=== PATIENT | male | born 1960 | race Caucasian/White ===

== ENCOUNTER 2016-11-18 09:52 | Emergency (ER) | payer OTHER ==
[2016-11-18 09:56] VITALS: BP 132/74
[2016-11-18 11:00] LABS: Hematocrit 50 % (42-52); Hemoglobin 16.8 g/dl (14.0-18.0); Mean Corpuscular HGB Conc 33 g/dl (31-36); Mean Corpuscular Hemoglobin 31 pg (27-31); Mean Corpuscular Volume 93 fL (80-94); Mean Platelet Volume 9 um3 (7.4-10.4); Red Cell Distribution Width 15 % (10.5-15); White Blood Count 8.7 10^3/ul (3.5-10.8)
[2016-11-18 11:08] LABS: Add Diff/Slide Review? Slide Review Added; Comments Flag Yes
[2016-11-18 11:11] LABS: Albumin 3.5 g/dL (3.2-5.2); BUN/Creatinine Ratio 24.5 (8-20); Calcium 9.9 mg/dL (8.6-10.3); EGFR Non-African American 78.6 (>60); Globulin 2.8 g/dL (2-4); Potassium 3.9 mmol/L (3.5-5.0); Total Protein 6.3 g/dL (6.4-8.9)
--- NOTE | 2016-11-18 11:16 | RAD ---
HISTORY: Left calf pain COMPARISONS: None relevant TECHNIQUE: Multiple transverse and longitudinal ultrasound images were obtained of the left lower extremity from the level of the common femoral vein inferiorly through to the infrapopliteal veins using grayscale, color Doppler, and spectral Doppler imaging with and without compression and with augmentation. Comparison images were obtained of the contralateral common femoral vein. FINDINGS: VEINS: The venous system of the left lower extremity is compressible throughout its course, with normal flow on color Doppler imaging and normal response to augmentation on spectral Doppler imaging. SOFT TISSUES: Unremarkable. OTHER FINDINGS: None. IMPRESSION: NO LEFT LOWER EXTREMITY DEEP VEIN THROMBOSIS
--- NOTE | 2016-11-18 11:44 | ED ---
Skin Complaint - HPI Summary HPI Summary: 56M presents with rash on legs starting today. His primary recommended he come to ED for u/s due to inc edema in his legs. He has been having the edema in bilateral legs with some pain for some time but the rash is new. He denies any fevers. He denies any recent travel, surgeries, or immobilization. He denies any family history of blood clots. He has never had this rash before. He denies any numbness or tingling. He has not taken anything for pain. - History of Current Complaint Chief Complaint: EDExtremityLower Time Seen by Provider: 11/18/16 10:07 Stated Complaint: LT LEG COMPLAINT Pain Intensity: 6 - Allergy/Home Medications Allergies/Adverse Reactions: Allergies Allergy/AdvReac Type Severity Reaction Status Date / Time No Known Allergies Allergy Verified 10/28/12 18:14 PMH/Surg Hx/FS Hx/Imm Hx Endocrine/Hematology History: Denies: Hx Diabetes Cardiovascular History: Reports: Hx Hypertension Infectious Disease History: No Infectious Disease History: Denies: Traveled Outside the [place] in Last 30 Days - Family History Known Family History: Negative: Blood Disorder - Social History Alcohol Use: None Substance Use Type: Reports: None Smoking Status (MU): Never Smoked Tobacco Review of Systems Negative: Fever Negative: Chest Pain Negative: Shortness Of Breath Positive: Myalgia - right calf pain, Edema - bilateral legs Positive: Rash All Other Systems Reviewed And Are Negative: Yes Physical Exam Triage Information Reviewed: Yes Vital Signs On Initial Exam: Initial Vitals Temp Pulse Resp BP Pulse Ox 97.3 F 55 16 132/74 95 11/18/16 09:53 11/18/16 09:53 11/18/16 09:53 11/18/16 09:53 11/18/16 09:53 Vital Signs Reviewed: Yes Appearance: Positive: Well-Appearing Skin: Positive: Other - red macular lesions to top of sweeney of left foot, area above lateral malleolus that is red, tender to touch and warm Head/Face: Positive: Normal Head/Face Inspection Eyes: Positive: Normal, Conjunctiva Clear Respiratory/Lung Sounds: Positive: Clear to Auscultation, Breath Sounds Present Cardiovascular: Positive: Normal, RRR Musculoskeletal: Positive: Strength/ROM Intact - left knee and ankle, Other - good pulses, sensation grossly intact,. Negative: Rc Sign Left Diagnostics - Vital Signs Vital Signs Temp Pulse Resp BP Pulse Ox 11/18/16 09:56 97.3 F 54 16 132/74 96 11/18/16 09:53 97.3 F 55 16 132/74 95 - Laboratory Lab Results: Lab Results 11/18/16 11/18/16 11/18/16 Range/Units 10:45 10:45 10:45 WBC 8.7 (3.5-10.8) 10^3/ul RBC 5.40 (4.0-5.4) 10^6/ul Hgb 16.8 (14.0-18.0) g/dl Hct 50 (42-52) % MCV 93 (80-94) fL MCH 31 (27-31) pg MCHC 33 (31-36) g/dl RDW 15 (10.5-15) % Plt Count 162 (150-450) 10^3/ul MPV 9 (7.4-10.4) um3 Neut % (Auto) 63.6 (38-83) % Lymph % (Auto) 25.0 (25-47) % [place] % (Auto) 7.7 (1-9) % Eos % (Auto) 3.1 (0-6) % Baso % (Auto) 0.6 (0-2) % Absolute Neuts (auto) 5.6 (1.5-7.7) 10^3/ul Absolute Lymphs (auto) 2.2 (1.0-4.8) 10^3/ul Absolute Monos (auto) 0.7 (0-0.8) 10^3/ul Absolute Eos (auto) 0.3 (0-0.6) 10^3/ul Absolute Basos (auto) 0.1 (0-0.2) 10^3/ul Absolute Nucleated RBC 0 10^3/ul Nucleated RBC % 0 INR (Anticoag Therapy) 1.00 (0.89-1.11) APTT 35.4 (26.0-36.3) seconds Sodium 136 (133-145) mmol/L Potassium 3.9 (3.5-5.0) mmol/L Chloride 108 (101-111) mmol/L Carbon Dioxide 23 (22-32) mmol/L Anion Gap 5 (2-11) mmol/L BUN 24 (6-24) mg/dL Creatinine 0.98 (0.67-1.17) mg/dL Est GFR ( Amer) 101.0 (>60) Est GFR (Non-Af Amer) 78.6 (>60) BUN/Creatinine Ratio 24.5 H (8-20) Glucose 139 H (70-100) mg/dL Calcium 9.9 (8.6-10.3) mg/dL Total Bilirubin 1.00 (0.2-1.0) mg/dL AST 36 (13-39) U/L ALT 20 (7-52) U/L Alkaline Phosphatase 95 (34-104) U/L Total Protein 6.3 L (6.4-8.9) g/dL Albumin 3.5 (3.2-5.2) g/dL Globulin 2.8 (2-4) g/dL Albumin/Globulin Ratio 1.3 (1-3) Result Diagrams: 11/18/16 10:45 11/18/16 10:45 Lab Statement: Any lab studies that have been ordered have been reviewed, and results considered in the medical decision making process. - Ultrasound No standard instances Ultrasound Interpretation: No Acute Changes Ultrasound Interpretation Completed By: Radiologist - IMPRESSION: NO LEFT LOWER EXTREMITY DEEP VEIN THROMBOSIS Course/Dx - Course Course Of Treatment: 56M presents with rash on legs starting today. His primary recommended he come to ED for u/s due to inc edema in his legs. He has been having the edema in bilateral legs with some pain for some time but the rash is new. He denies any fevers. he has no risk factors for DVT. labs wbc 8.7, u/s normal. rash near left lateral malleolus could be cellulitic but almost looks like venous statis. will treat as cellulitis. also will try corticosteriod for lesions on sweeney as could be due to venous insufficiency? told to use compression socks. told to follow up with primary to see if any improvement. warned if develops fever to return. patient understands and agrees with plan - Differential Diagnoses - Skin Complaint Differential Diagnoses: Cellulitis, Contact Dermatitis, Other - DVT, venous statis - Diagnoses Provider Diagnoses: Rash, Edema of lower extremity Discharge - Discharge Plan Condition: Good Disposition: HOME Prescriptions: Cephalexin CAP* [Keflex CAP*] 500 mg PO TID #30 cap Triamcinolone 0.1% OINT(NF) [Kenalog 0.1% OINT(NF)] 1 applic TOPICAL DAILY #1 tube Patient Education Materials: Leg Edema (ED) Referrals: Milton Husain MD [Primary Care Provider] - Additional Instructions: Elevate leg and wear compression socks Will treat for possible cellulitis infection: Keflex three times a day for 10 days Apply corticosteriod ointment to area once a day Follow up with primary within 5 days Return to ED if develop any new or worsening symptoms
[2016-11-18 12:24] LABS: C Reactive Protein 10.77 mg/L (< 5.00)
== END 2016-11-18 11:58 | disposition home or self-care (01) ==
LOC: ED 09:52
DX: R60.9 Edema, unspecified (principal); R21 Rash and other nonspecific skin eruption; M79.661 Pain in right lower leg
CPT/HCPCS: 36415; 80053; 85025; 85610; 85730; 86140; 99282

== ENCOUNTER 2017-12-01 08:11 | Inpatient (IN) | payer OTHER ==
[2017-12-01] MEDS ORDERED: NS 0.9% 1000 ML* 1,000 ML IV ONE ×2 (08:18→09:39)
[2017-12-01] MEDS ORDERED: methylPREDNISolone 125 MG* 2 ML VIAL IV ONE (08:20)
[2017-12-01] MEDS ORDERED: Albuterol/Ipratropium NEB.SOL* Albuterol 2.5 MG/Ipratropium 0.5 MG 3 ML INH ONE (08:20)
--- NOTE | 2017-12-01 08:30 | ED ---
Shortness of Breath - HPI Summary HPI Summary: This patient is a 57 year old M presenting to [facility] with a chief complaint of SOB since a few days ago, but at its worst today, 12/01/17. Pt endorses a large volume of green mucous production, CP secondary to cough/breathing, deep cough, orthopnea on left side, sore throat. He denies fever, nasal discharge, sinus pain, back pain, abd pain, similar sx in past. He denies ever smoking, but endorses being around 2nd-hand smoke often. PMHx HTN, takes meds for it. He notes his granddaughter is currently sick with a respiratory illness, and she lives with pt. - History of Current Complaint Chief Complaint: EDShortnessOfBreath Time Seen by Provider: 12/01/17 08:12 Hx Obtained From: Patient Onset/Duration: Gradual Onset, Lasting Days, Still Present Timing: Constant Current Severity: Moderate Dyspnea At: Rest Aggrevating Factors: Recumbent Position Alleviating Factors: Nothing Associated Signs & Symptoms: Cough (Productive), Chest Pain w/Cough - Allergy/Home Medications Allergies/Adverse Reactions: Allergies Allergy/AdvReac Type Severity Reaction Status Date / Time No Known Allergies Allergy Verified 12/01/17 08:36 Home Medications: Home Medications Loratadine 10 mg PO DAILY 12/01/17 [History Confirmed 12/01/17] PMH/Surg Hx/FS Hx/Imm Hx Endocrine/Hematology History: Denies: Hx Diabetes Cardiovascular History: Reports: Hx Hypertension Respiratory History: Reports: Hx Chronic Obstructive Pulmonary Disease (COPD) Sensory History: Denies: Hx Legally Blind Opthamlomology History: Denies: Hx Legally Blind EENT History: Denies: Hx Deafness Infectious Disease History: No Infectious Disease History: Denies: Traveled Outside the [place] in Last 30 Days - Family History Known Family History: Negative: Blood Disorder - Social History Lives: With Family Alcohol Use: None Substance Use Type: Reports: None Smoking Status (MU): Never Smoked Tobacco Review of Systems Negative: Fever Positive: Sore Throat. Negative: Nasal Discharge Positive: Chest Pain Positive: Shortness Of Breath, Cough Negative: Abdominal Pain Negative: Myalgia, Edema Positive: Rash - "acne" All Other Systems Reviewed And Are Negative: Yes Physical Exam - Summary Physical Exam Summary: Appearance: Well appearing, no pain distress Skin: warm, dry, reflects adequate perfusion, excoriated erythematous papules on face, upper chest, and back Head/face: excoriated erythematous papules on face Eyes: EOMI, QUINTON ENT: normal Neck: supple, non-tender Respiratory: Scattered expiratory wheeze, diminished breath sounds throughout left lung, worse at the base, no crackles Cardiovascular: Heart is occasionally irregular, bradycardic, pulses symmetrical Abdomen: non-tender, soft Bowel Sounds: present Musculoskeletal: normal, strength/ROM intact Neuro: normal, sensory motor intact, A&Ox3 Triage Information Reviewed: Yes Vital Signs On Initial Exam: Initial Vitals Temp Pulse Resp BP Pulse Ox 98.7 F 55 24 144/91 92 12/01/17 08:12 12/01/17 08:12 12/01/17 08:12 12/01/17 08:12 12/01/17 08:12 Vital Signs Reviewed: Yes Procedures - Chest Tube Left Upper Anterior Chest Tube Location: anterior Size of [place] Tube (cm): 12 - pigtail catheter chest tube placed by Seldinger technique Chest Tube Procedure: sterile drapes applied, sterile dressing applied, no betadine prep - chloroprep for scan Anesthesia: 1% Lidocaine Volume Anesthetic (ccs): 15 [place]re[place] of Air [place]: No Number of Attempts: 1 Time of Successful Intubation: 11:10 Tube Drainage: air throughout Heimlich valve Tube Sutured to Skin: Yes Post Procedure CXR?: Yes Diagnostics - Vital Signs Vital Signs Temp Pulse Resp BP Pulse Ox 12/01/17 08:12 98.7 F 55 24 144/91 92 - Laboratory Result Diagrams: 12/01/17 08:44 12/01/17 08:44 Lab Statement: Any lab studies that have been ordered have been reviewed, and results considered in the medical decision making process. - Radiology CXR Xray Interpretation: Positive (See Comments) Radiology Interpretation Completed By: Radiologist - approximately 40 % left PT - EKG 0832 Cardiac Rate: Bradycardia - 50 EKG Rhythm: Sinus Bradycardia ST Segment: Non-Specific EKG Interpretation: ectopic atrial pacemaker rythym, nl axis. Re-Evaluation - Re-Evaluation First Eval Re-Evaluation Time: 11:30 Change: Improved Comment: Pt feels better now. Course/Dx - Course Course Of Treatment: Patient with history of COPD with decreased breath sounds on the left and expiratory wheezes. X-ray confirms pneumothorax on the left. A pigtail catheter chest tube was placed in the left anterior chest under local anesthetic. With interval resolution of the pneumothorax. His shortness of breath was improving. He is also treated for COPD exacerbation. He'll be admitted to the hospitalist service. - Diagnoses Differential Diagnosis/HQI/PQRI: Positive: Chest Wall Pain, COPD Exacerbation, Pneumonia, Pneumothorax, Pulmonary Embolism, Pulmonary Edema Provider Diagnoses: COPD exacerbation, Spontaneous pneumothorax - Physician Notifications Discussed Care of Patient With: Carlee Melendez Time Discussed With Above Provider: 11:36 Instructed by Provider To: Other - Dr. Melendez [place] [facility] [place] - Critical Care Time Critical Care Time: 30-74 min - 30 minutes. CCT is EXCLUSIVE of separately billable procedures. Discharge - Sign-Out/Discharge Documenting (check all that apply): Patient Departure - admit - Discharge Plan Condition: Fair Disposition: ADMITTED TO [facility] - Billing Disposition and Condition Condition: FAIR Disposition: Admitted to [facility]
[2017-12-01] MEDS ORDERED: Sterile Water for Inj* 10 ML ONE (08:40)
[2017-12-01] MEDS ORDERED: Aspirin 81 mg CHEW TAB* 81 MG TAB.CHEW PO ONE (08:41)
[2017-12-01 08:57] LABS: ABS Basophils 0.1 10^3/ul (0-0.2); ABS Eosinophils 0.4 10^3/ul (0-0.6); ABS Lymphocytes 2.1 10^3/ul (1.0-4.8); ABS Monocytes 0.9 10^3/ul (0-0.8); ABS Neutrophils 6.1 10^3/ul (1.5-7.7); ABS Nucleated RBC 0 10^3/ul; Eosinophil % 3.9 % (0-6); Hematocrit 53 % (42-52); Hemoglobin 18.9 g/dl (14.0-18.0); Lymphocyte % 22.5 % (25-47); Mean Corpuscular HGB Conc 36 g/dl (31-36); Mean Corpuscular Hemoglobin 32 pg (27-31); Mean Corpuscular Volume 91 fL (80-94); Mean Platelet Volume 8.3 um3 (7.4-10.4); Nucleated Red Blood Cells % 0.1; Platelet Count 214 10^3/ul (150-450); Red Blood Count 5.84 10^6/ul (4.00-5.40); Red Cell Distribution Width 14 % (10.5-15); White Blood Count 9.6 10^3/ul (3.5-10.8)
[2017-12-01 09:09] LABS: INR 1.03 (0.77-1.02)
[2017-12-01 09:14] LABS: EGFR Non-African American 85.3 (>60)
[2017-12-01] MEDS ORDERED: Morphine VIAL* 4 MG/ML VIAL (1 ml vial) IV ONE ×2 (09:43→11:37)
--- NOTE | 2017-12-01 10:07 | RAD ---
INDICATION: Acute shortness of breath and cough x3 days COMPARISON: Chest x-ray April 13, 2014 TECHNIQUE: PA and lateral views of the chest were obtained. FINDINGS: The heart and mediastinum are normal in size and contour. There is a moderate-sized left pneumothorax. The right lung is adequately aerated. Visualized bones are normal for the patient's age. There is no radiographic evidence of free air beneath the diaphragm IMPRESSION: APPROXIMATELY 40% LEFT-SIDED PNEUMOTHORAX. CASE WAS DISCUSSED OVER THE TELEPHONE WITH DR. CIFUENTES AT 1000 HOURS ON DECEMBER 01, 2017
[2017-12-01] MEDS ORDERED: Lidocaine 1%* 5 ML VIAL INJ ONE (10:45)
[2017-12-01] MEDS ORDERED: Lidocaine 1% INJ* 10 MG/ML 30 ML SDV ONE (10:48)
[2017-12-01] MEDS ORDERED: Azithromycin IV(*) 500 MG in NS 0.9% 250 ML* 250 ML IVPB ONE (11:46)
[2017-12-01] MEDS ORDERED: guaiFENesin LIQ* 100 MG/5 ML UDC PO PRN (12:10)
--- NOTE | 2017-12-01 12:20 | RAD ---
INDICATION: Status post left sided chest tube placement patient with a pneumothorax COMPARISON: Same day chest x-ray acquired at 0941 hours showing a moderate-sized pneumothorax TECHNIQUE: Single AP view of the chest was obtained. FINDINGS: There is been interval placement of a left-sided chest tube. There is been resolution of the left-sided pneumothorax. Lungs are otherwise grossly clear. IMPRESSION: RESOLUTION OF LEFT-SIDED PNEUMOTHORAX STATUS POST CHEST TUBE PLACEMENT.
[2017-12-01] MEDS ORDERED: PROCHLORPERAZINE INJ 5 MG/ML 2 ML VIAL IV PRN (12:22)
--- NOTE | 2017-12-01 13:18 | HP ---
CC: Dr. Husain * [facility] MEDICINE HISTORY AND PHYSICAL: DATE OF ADMISSION: 12/01/17 PRIMARY CARE PHYSICIAN: Dr. Husain. ATTENDING PHYSICIAN: Dr. Carlee Melendez * (dictation provided by Racheal Moser NP ). CHIEF COMPLAINT: Cough and shortness of breath. HISTORY OF PRESENT ILLNESS: Mr. Yao is a 57-year-old male with a past medical history only of hypertension, who presents today to the hospital with concern for two days of cough, chest pain and shortness of breath. Mr. Yao states he began to feel unwell on . He had a severe cough. His granddaughter had sinusitis and he thought perhaps he was developing sinusitis as well. On Sunday, he developed chest pain along the left side. He had continued cough. This morning, he got into the shower and had severe shortness of breath. Because he was unable to catch his breath and appeared that he might faint, his family called EMS to have him brought to the emergency room. He feels that he may have had a fever, though he did not check his temperature. He denies any nausea, vomiting, diarrhea, abdominal pain. In the emergency room, Mr. Yao had labs, which were remarkable only for a hemoglobin of 18.9, hematocrit of 53. His troponin was 0.01. His CRP was 26.07. His BNP was 194. However, chest x-ray showed a large left-sided pneumo- thorax. The patient was immediately evaluated by emergency room physicians and a chest tube with heimlich valve was placed. The patient states that he is breathing better now. He is on 2 L nasal cannula. PAST MEDICAL HISTORY: Hypertension. MEDICATIONS: 1. Aleve 4 tabs p.o. b.i.d. p.r.n. 2. Loratadine 10 mg p.o. daily. 3. Mucinex 1 tab p.o. b.i.d. 4. Vitamin D3 one tab p.o. daily. 5. Amlodipine 10 mg p.o. daily. 6. Furosemide 20 mg p.o. daily. 7. Hydralazine 50 mg p.o. b.i.d. 8. Lisinopril 40 mg p.o. daily. 9. Minocycline 100 mg p.o. daily. 10. Nadolol 20 mg p.o. daily. ALLERGIES: No known drug allergies. FAMILY HISTORY: The patient states that he is estranged from his mother and does not know about her health condition. He states that his father related to pancreatic cancer. SOCIAL HISTORY: The patient denies smoking. He denies alcohol use. He lives with his , Jennifer, who will be the healthcare proxy. REVIEW OF SYSTEMS: A 14-point review of systems was completed with Mr. Yao and all those not mentioned above were negative. PHYSICAL EXAMINATION GENERAL: Mr. Yao is lying in the bed with his at the bedside. He is in no acute distress. VITAL SIGNS: Temperature 98.7, pulse rate 57, respiratory rate 22, O2 saturation 94% on 2 L nasal cannula, blood pressure 152/90. LUNGS: Clear to auscultation with good breath sounds throughout left and right side. There is a chest tube with heimlich in place on the left side. There is no adventitious sound. HEART: S1, S2. No murmur, rub or gallop and regular. ABDOMEN: Soft, nontender with bowel sounds positive x4. EXTREMITIES: No cyanosis or edema. NEURO: He is alert. He is oriented x3. He moves all extremities equally. There is no facial asymmetry or focal weakness. Extraocular movements are intact. SKIN: Intact. DIAGNOSTIC STUDIES/LAB DATA: Sodium 136, potassium 4.1, chloride 111, serum bicarbonate 22, BUN 20, creatinine 0.91, glucose 97. Lactic acid 0.8. Troponin 0.01. CRP 26.07. BNP 194. WBC 9.6, hemoglobin 18.9, hematocrit 53, platelet count 214. INR 1.03. Chest x-ray again shows a 40% left-sided pneumothorax. EKG shows sinus bradycardia with no change from previous. ASSESSMENT AND PLAN: Mr. Yao is a 57-year-old male with past medical history of hypertension, who denies a history of smoking, who has had two days of cough associated with chest pain, now found to have a large left-sided pneumothorax, status post PleurX catheter placement. Plans are for inpatient admission as I expect his length of stay to be greater than two days for the followin. Pneumothorax: The patient is breathing easily with the chest tube in place. He is on 2 L nasal cannula, though I suspect that it could be titrated off. He has had a repeat chest x-ray, which to my eye shows resolution of the pneumothorax. In terms of the cause, the patient is not a smoker and his body type is not consistent with Marfan syndrome. He has no history of chronic obstructive pulmonary disease. It appears per the chest x-ray that he could have pneumonia and certainly with his cough he could have ruptured bleb. Plan to treat for pneumonia as per below. Surgery will provide consultation, Dr. Smallwood has been notified. 2. Pneumonia, question: The patient has a normal white blood cell count and essentially almost normal CBC. A chest x-ray to my mind looks like could show pneumonia and plan for ceftriaxone and azithromycin today pending clinical course. Again, the patient shows no evidence of sepsis. 3. Hypertension. Continue all blood pressure medications. 4. DVT prophylaxis with SCDs. 5. Code status is full code. TIME SPENT: Approximately 60 minutes were spent on the admission of this patient, more than half time was spent with the patient at the bedside reviewing the events leading up to this hospitalization, performing the physical examination, and reviewing the plan of care. RACHEAL MOSER NP [id number]/CPS #: [id number] BISI
[2017-12-01] MEDS: cefTRIAXone VIAL(*) 1,000 MG in NS 0.9% 50 ML* 50 ML IVPB SCH (16:05)
--- NOTE | 2017-12-01 19:01 | PN ---
Progress Note - Progress Note Date of Service: 12/01/17 Note: Surgery Asked to follow the Chest tube that was placed in the ER. Mr. Yao is a 57 y.o. male who experienced SOB this morning after 2-3 days of a cough. He denies tob use, but acknowledges that he has been exposed to 2nd hand smoke his whole life. Upon presentation to the ER he was found to have a pntx on the left and a small bore CT was placed. The f/u CXR showed expansion of the lung. He feels much better A check of the CT shows that it is functional with respiratory variation of the jose of the heimlich valve. Agree with current management; repeat CXR in AM. Will follow. Cristel
[2017-12-01] MEDS: Acetaminophen TAB* 325 MG PO PRN (20:32)
[2017-12-01] MEDS: oxyCODONE TAB* 5 MG TAB PO PRN (20:32)
[2017-12-01] MEDS: hydrALAZINE TAB* 25 MG PO SCH (20:32)
[2017-12-02] MEDS: Acetaminophen TAB* 325 MG PO PRN ×3 (03:13→20:21)
[2017-12-02] MEDS: oxyCODONE TAB* 5 MG TAB PO PRN ×3 (03:13→20:22)
[2017-12-02 05:33] LABS: ABS Basophils 0 10^3/ul (0-0.2); ABS Eosinophils 0 10^3/ul (0-0.6); ABS Lymphocytes 2.1 10^3/ul (1.0-4.8); ABS Monocytes 0.7 10^3/ul (0-0.8); ABS Nucleated RBC 0 10^3/ul; Eosinophil % 0 % (0-6); Hematocrit 48 % (42-52); Hemoglobin 16.9 g/dl (14.0-18.0); Mean Corpuscular HGB Conc 35 g/dl (31-36); Mean Corpuscular Hemoglobin 32 pg (27-31); Mean Corpuscular Volume 91 fL (80-94); Mean Platelet Volume 8.1 um3 (7.4-10.4); Nucleated Red Blood Cells % 0; Platelet Count 181 10^3/ul (150-450); Red Blood Count 5.29 10^6/ul (4.00-5.40); Red Cell Distribution Width 14 % (10.5-15); White Blood Count 14.8 10^3/ul (3.5-10.8)
[2017-12-02 05:51] LABS: EGFR Non-African American 93.5 (>60)
--- NOTE | 2017-12-02 08:08 | PN ---
Progress Note - Progress Note Date of Service: 12/02/17 Note: Surgery Mr. Yao denies complaints, had some blood around dressing today. Vital Signs 12/01/17 12/01/17 12/01/17 08:12 08:26 08:32 Temperature 98.7 F Pulse Rate 55 49 54 Respiratory 24 18 16 Rate Blood Pressure 144/91 (mmHg) O2 Sat by Pulse 92 94 94 Oximetry 12/01/17 12/01/17 12/01/17 08:55 09:00 09:25 Temperature Pulse Rate 49 51 52 Respiratory 24 28 25 Rate Blood Pressure 137/100 152/90 (mmHg) O2 Sat by Pulse 93 92 93 Oximetry 12/01/17 12/01/17 12/01/17 10:00 10:14 11:00 Temperature Pulse Rate 48 57 Respiratory 28 22 22 Rate Blood Pressure (mmHg) O2 Sat by Pulse 94 95 Oximetry 12/01/17 12/01/17 12/01/17 11:48 12:00 12:12 Temperature 97.9 F Pulse Rate 58 58 Respiratory 23 22 20 Rate Blood Pressure 158/100 (mmHg) O2 Sat by Pulse 94 95 Oximetry 12/01/17 12/01/17 12/01/17 12:59 15:20 19:10 Temperature 98.7 F 98.1 F 98.5 F Pulse Rate 55 59 63 Respiratory 24 18 20 Rate Blood Pressure 152/90 138/81 142/75 (mmHg) O2 Sat by Pulse 93 93 91 Oximetry 12/01/17 12/01/17 12/01/17 20:32 20:47 22:59 Temperature Pulse Rate Respiratory 18 18 14 Rate Blood Pressure (mmHg) O2 Sat by Pulse Oximetry 12/01/17 12/02/17 12/02/17 23:15 00:21 03:11 Temperature 98.6 F 98.7 F Pulse Rate 58 54 Respiratory 16 20 Rate Blood Pressure 147/91 113/65 (mmHg) O2 Sat by Pulse 100 100 98 Oximetry 12/02/17 12/02/17 03:13 05:20 Temperature Pulse Rate Respiratory 18 18 Rate Blood Pressure (mmHg) O2 Sat by Pulse Oximetry CT without air leak, no bubbles in water. Site has some fresh blood, but is intact. Laboratory Results - last 24 hr 12/01/17 12/01/17 12/01/17 08:44 08:44 08:44 WBC 9.6 RBC 5.84 H Hgb 18.9 H Hct 53 H MCV 91 MCH 32 H MCHC 36 RDW 14 Plt Count 214 MPV 8.3 Neut % (Auto) 63.4 Lymph % (Auto) 22.5 L [place] % (Auto) 9.5 H Eos % (Auto) 3.9 Baso % (Auto) 0.7 Absolute Neuts (auto) 6.1 Absolute Lymphs (auto) 2.1 Absolute Monos (auto) 0.9 H Absolute Eos (auto) 0.4 Absolute Basos (auto) 0.1 Absolute Nucleated RBC 0 Nucleated RBC % 0.1 INR (Anticoag Therapy) 1.03 H Sodium 136 Potassium 4.1 Chloride 111 Carbon Dioxide 22 Anion Gap 3 BUN 20 Creatinine 0.91 Est GFR ( Amer) 103.2 Est GFR (Non-Af Amer) 85.3 BUN/Creatinine Ratio 22.0 H Glucose 97 Lactic Acid Calcium 10.4 H Total Bilirubin 1.50 H AST 35 ALT 23 Alkaline Phosphatase 138 H Troponin I 0.01 C-Reactive Protein 26.07 H B-Natriuretic Peptide Total Protein 7.0 Albumin 4.0 Globulin 3.0 Albumin/Globulin Ratio 1.3 Procalcitonin 12/01/17 12/01/17 12/01/17 08:44 08:44 08:44 WBC RBC Hgb Hct MCV MCH MCHC RDW Plt Count MPV Neut % (Auto) Lymph % (Auto) [place] % (Auto) Eos % (Auto) Baso % (Auto) Absolute Neuts (auto) Absolute Lymphs (auto) Absolute Monos (auto) Absolute Eos (auto) Absolute Basos (auto) Absolute Nucleated RBC Nucleated RBC % INR (Anticoag Therapy) Sodium Potassium Chloride Carbon Dioxide Anion Gap BUN Creatinine Est GFR ( Amer) Est GFR (Non-Af Amer) BUN/Creatinine Ratio Glucose Lactic Acid 0.8 Calcium Total Bilirubin AST ALT Alkaline Phosphatase Troponin I C-Reactive Protein B-Natriuretic Peptide 194 H Total Protein Albumin Globulin Albumin/Globulin Ratio Procalcitonin 0.1 12/02/17 12/02/17 05:28 05:28 WBC 14.8 H RBC 5.29 Hgb 16.9 Hct 48 MCV 91 MCH 32 H MCHC 35 RDW 14 Plt Count 181 MPV 8.1 Neut % (Auto) 81.1 Lymph % (Auto) 14.0 L [place] % (Auto) 4.6 Eos % (Auto) 0 Baso % (Auto) 0.3 Absolute Neuts (auto) 12.0 H Absolute Lymphs (auto) 2.1 Absolute Monos (auto) 0.7 Absolute Eos (auto) 0 Absolute Basos (auto) 0 Absolute Nucleated RBC 0 Nucleated RBC % 0 INR (Anticoag Therapy) Sodium 136 Potassium 4.3 Chloride 108 Carbon Dioxide 24 Anion Gap 4 BUN 22 Creatinine 0.84 Est GFR ( Amer) 113.2 Est GFR (Non-Af Amer) 93.5 BUN/Creatinine Ratio 26.2 H Glucose 139 H Lactic Acid Calcium 9.8 Total Bilirubin AST ALT Alkaline Phosphatase Troponin I C-Reactive Protein B-Natriuretic Peptide Total Protein Albumin Globulin Albumin/Globulin Ratio Procalcitonin A/P: Doing well. If CXR shows lung up today, could consider d/c of CT. CLFoster
[2017-12-02] MEDS: hydrALAZINE TAB* 25 MG PO SCH ×2 (08:27→20:02)
[2017-12-02] MEDS: amLODIPine TAB* 5 MG PO SCH (08:28)
[2017-12-02] MEDS: CMCS - Minocycline (NF) 50 MG CAP PO SCH (08:28)
[2017-12-02] MEDS: Azithromycin TAB* 250 MG PO SCH (08:28)
[2017-12-02] MEDS: Lisinopril TAB* 10 MG PO SCH (08:28)
[2017-12-02] MEDS: Furosemide TAB* 20 MG PO SCH (08:28)
[2017-12-02] MEDS: Nadolol TAB* 40 MG PO SCH (08:29)
[2017-12-02] MEDS ORDERED: Pneumococcal *Vac Polyvalent 0.5 ML VIAL IM ONE (09:00)
[2017-12-02] MEDS: cefTRIAXone VIAL(*) 1,000 MG in NS 0.9% 50 ML* 50 ML IVPB SCH (13:15)
--- NOTE | 2017-12-02 16:31 | PN ---
Subjective Date of Service: 12/02/17 Interval History: Pt seen and examined. Meds and labs reviewed. ROS: Denied COOK/dizziness, F/C, N/V, CP, SOB, increased cough, sputum production , abd pain, diarrhea, constipation, dysuria, myalgias, arthralgias, throat pain , and new skin lesions. The rest of the 14 point ROS are unremarkable. PHYSICAL EXAM: GEN APPEARANCE: Awake, not in acute distress HEENT: NC/AT, PERRLA, moist oral mucosa, (-) throat erythema NECK: Soft, supple, (-) cervical LAD, (-)JVD HEART: S1S2 WNL, RRR, No MRG CHEST: CTA, BL, GAE, No W/R/R, equal breath sounds on both sides ABD: Soft, ND/NT, NABS 4x Q EXT: No C/C/E SKIN: Warm to touch PSYCH: No active psychosis, hallucinations, depression, SI/HI Objective Active Medications: Acetaminophen (Tylenol Tab*) 650 mg PO Q6H PRN PRN Reason: pain/fever Last Admin: 12/02/17 08:37 Dose: 650 mg Amlodipine Besylate (Norvasc Tab*) 10 mg PO DAILY [facility] Last Admin: 12/02/17 08:28 Dose: 10 mg Azithromycin (Zithromax Tab*) 250 mg PO DAILY [facility] Last Admin: 12/02/17 08:28 Dose: 250 mg Benzonatate (Tessalon Cap*) 100 mg PO BID PRN PRN Reason: COUGH Furosemide (Lasix Tab*) 20 mg PO DAILY [facility] Last Admin: 12/02/17 08:28 Dose: 20 mg Guaifenesin (Robitussin*) 5 ml PO Q4H PRN PRN Reason: COUGH Hydralazine HCl (Apresoline Tab*) 50 mg PO BID [facility] Last Admin: 12/02/17 08:27 Dose: 50 mg Ceftriaxone Sodium 1,000 mg/ (Sodium Chloride) 50 mls @ 200 mls/hr IVPB Q24H [facility] Last Admin: 12/02/17 13:15 Dose: 200 mls/hr Lisinopril (Prinivil Tab*) 40 mg PO DAILY [facility] Last Admin: 12/02/17 08:28 Dose: 40 mg Minocycline HCl (Minocycline (Nf)) 100 mg PO DAILY [facility] Last Admin: 12/02/17 08:28 Dose: 100 mg Nadolol (Corgard Tab*) 20 mg PO DAILY [facility] Last Admin: 12/02/17 08:29 Dose: 20 mg Oxycodone HCl (Roxycodone Tab*) 5 mg PO Q4H PRN PRN Reason: PAIN Last Admin: 12/02/17 08:38 Dose: 5 mg Prochlorperazine Edisylate (Compazine Inj*) 5 mg IV Q6H PRN PRN Reason: NAUSEA/VOMITING Vital Signs - 8 hr 12/02/17 12/02/17 12/02/17 08:38 11:26 15:15 Temperature 97.2 F 98.8 F Pulse Rate 50 54 Respiratory 20 16 16 Rate Blood Pressure 120/74 129/76 (mmHg) O2 Sat by Pulse 97 96 Oximetry Oxygen Devices in Use Now: Nasal Cannula Result Diagrams: 12/02/17 05:28 12/02/17 05:28 Microbiology and Other Data: Microbiology 12/02/17 09:56 Gram Stain - Final Sputum Expectorated 12/01/17 09:00 Aerobic Blood Culture - Preliminary Blood Venous No Growth Day 1 Anaerobic Blood Culture - Preliminary No Growth Day 1 12/01/17 08:44 Aerobic Blood Culture - Preliminary Blood Venous No Growth Day 1 Anaerobic Blood Culture - Preliminary No Growth Day 1 12/01/17 15:25 Legionella Urinary Antigen - Final Urine Negative Legionella Antigen Streptococcus pneumoniae Ag Screen - Final Negative S. pneumo Antigen Assess/Plan/Problems-Billing Assessment: - Patient Problems (1) Pneumothorax Current Visit: Yes Status: Acute Code(s): J93.9 - PNEUMOTHORAX, UNSPECIFIED SNOMED Code(s): 92392303 Comment: -Reviewed surgical plan today -Will order repeat CXR and will defer with Surgery to remove CT when ready (2) Pneumonia Current Visit: Yes Status: Acute Code(s): J18.9 - PNEUMONIA, UNSPECIFIED ORGANISM SNOMED Code(s): 659512356 Comment: -Continue Rocephin and Azithromycin -(-) for Legionella and S. pneumoniae -Blood Cx (-) x1D (3) HTN (hypertension) Current Visit: Yes Status: Acute Code(s): I10 - ESSENTIAL (PRIMARY) HYPERTENSION SNOMED Code(s): 11938940 Comment: -Well-controlled -Continue Amlodipine (4) DVT prophylaxis Current Visit: Yes Status: Acute Code(s): JDB7740 - SNOMED Code(s): 838331965 Comment: -Continue SCDs Status and Disposition: -As above -Possible D/C in 1-2 days
--- NOTE | 2017-12-02 17:13 | RAD ---
INDICATION: Follow-up pneumothorax COMPARISON: Chest x-ray December 01, 2017 TECHNIQUE: Single AP portable view of the chest was obtained. FINDINGS: Image quality is compromised due to the relative inferiority of a portable chest x-ray. 10 seen is a left-sided chest tube. The pigtail loop is now positioned overlying the lower left lung. There is no significant pneumothorax. The lungs are grossly clear. Visualized bones are normal for the patient's age. IMPRESSION: No discernible pneumothorax.
[2017-12-03] MEDS: oxyCODONE TAB* 5 MG TAB PO PRN ×3 (01:53→19:35)
[2017-12-03] MEDS: Acetaminophen TAB* 325 MG PO PRN ×2 (02:18→14:06)
[2017-12-03 05:55] LABS: Hematocrit 54 % (42-52); Hemoglobin 18.5 g/dl (14.0-18.0); Mean Corpuscular HGB Conc 34 g/dl (31-36); Mean Corpuscular Hemoglobin 32 pg (27-31); Mean Corpuscular Volume 92 fL (80-94); Mean Platelet Volume 8.7 um3 (7.4-10.4); Platelet Count 224 10^3/ul (150-450); Red Blood Count 5.89 10^6/ul (4.00-5.40); Red Cell Distribution Width 14 % (10.5-15); White Blood Count 15.6 10^3/ul (3.5-10.8)
[2017-12-03 06:16] LABS: EGFR Non-African American 84.2 (>60)
[2017-12-03] MEDS: Azithromycin TAB* 250 MG PO SCH (08:10)
[2017-12-03] MEDS: Nadolol TAB* 40 MG PO SCH (08:11)
[2017-12-03] MEDS: hydrALAZINE TAB* 25 MG PO SCH ×2 (08:11→19:36)
[2017-12-03] MEDS: amLODIPine TAB* 5 MG PO SCH (08:11)
[2017-12-03] MEDS: Lisinopril TAB* 10 MG PO SCH (08:11)
[2017-12-03] MEDS: Furosemide TAB* 20 MG PO SCH (08:11)
[2017-12-03] MEDS: CMCS - Minocycline (NF) 50 MG CAP PO SCH (08:11)
--- NOTE | 2017-12-03 10:02 | PN ---
Progress Note - Progress Note Date of Service: 12/03/17 Note: Surgery CT shows no air leak and no air bubbles under water. Will d/c CT. CLFoster CT d/c'd without difficulty. He tolerated it well. [facility]
[2017-12-03] MEDS: cefTRIAXone VIAL(*) 1,000 MG in NS 0.9% 50 ML* 50 ML IVPB SCH (11:23)
[2017-12-03] MEDS: NS 0.9% 1000 ML* 1,000 ML IV SCH (11:23)
[2017-12-03 12:39] LABS: Urine Appearance Clear; Urine Blood Negative (Negative); Urine Color Yellow; Urine Ketones Negative (Negative); Urine Protein Negative (Negative); Urine Urobilinogen Negative (Negative)
--- NOTE | 2017-12-03 14:32 | RAD ---
Indication: Left chest tube removal. 2 views of the chest including dual energy PA views demonstrate no pneumothorax after left chest tube. Right lung field is clear. Comparison is made with previous exam dated December 02, 2017. IMPRESSION: Left chest tube has been removed. No pneumothorax is noted.
--- NOTE | 2017-12-03 16:13 | PN ---
Subjective Date of Service: 12/03/17 Interval History: Pt seen and examined. Meds and labs reviewed. S/P removal of CT this AM by Dr. Smallwood. F/U much appreciated. ROS: Denied COOK/dizziness, F/C, N/V, CP, SOB, increased cough, sputum production , abd pain, diarrhea, constipation, dysuria, myalgias, arthralgias, throat pain , and new skin lesions. The rest of the 14 point ROS are unremarkable. PHYSICAL EXAM: GEN APPEARANCE: Awake, not in acute distress HEENT: NC/AT, PERRLA, dry oral mucosa, (-) throat erythema NECK: Soft, supple, (-) cervical LAD, (-)JVD HEART: S1S2 WNL, RRR, No MRG CHEST: CTA, BL, GAE, equal breath sounds in both lungs, No W/R/R ABD: Soft, ND/NT, NABS 4x Q EXT: No C/C/E SKIN: Warm to touch PSYCH: No active psychosis, hallucinations, depression, SI/HI Objective Active Medications: Acetaminophen (Tylenol Tab*) 650 mg PO Q6H PRN PRN Reason: pain/fever Last Admin: 12/03/17 14:06 Dose: 650 mg Amlodipine Besylate (Norvasc Tab*) 10 mg PO DAILY [facility] Last Admin: 12/03/17 08:11 Dose: 10 mg Azithromycin (Zithromax Tab*) 250 mg PO DAILY [facility] Last Admin: 12/03/17 08:10 Dose: 250 mg Benzonatate (Tessalon Cap*) 100 mg PO BID PRN PRN Reason: COUGH Furosemide (Lasix Tab*) 20 mg PO DAILY [facility] Last Admin: 12/03/17 08:11 Dose: 20 mg Guaifenesin (Robitussin*) 5 ml PO Q4H PRN PRN Reason: COUGH Hydralazine HCl (Apresoline Tab*) 50 mg PO BID [facility] Last Admin: 12/03/17 08:11 Dose: 50 mg Ceftriaxone Sodium 1,000 mg/ (Sodium Chloride) 50 mls @ 200 mls/hr IVPB Q24H [facility] Last Admin: 12/03/17 11:23 Dose: 200 mls/hr Sodium Chloride (Ns 0.9% 1000 Ml*) 1,000 mls @ 100 mls/hr IV PER RATE [facility] Stop: 12/04/17 19:44 Last Admin: 12/03/17 11:23 Dose: 100 mls/hr Lisinopril (Prinivil Tab*) 40 mg PO DAILY [facility] Last Admin: 12/03/17 08:11 Dose: 40 mg Minocycline HCl (Minocycline (Nf)) 100 mg PO DAILY [facility] Last Admin: 12/03/17 08:11 Dose: 100 mg Nadolol (Corgard Tab*) 20 mg PO DAILY [facility] Last Admin: 12/03/17 08:11 Dose: 20 mg Oxycodone HCl (Roxycodone Tab*) 5 mg PO Q4H PRN PRN Reason: PAIN Last Admin: 12/03/17 08:11 Dose: 5 mg Prochlorperazine Edisylate (Compazine Inj*) 5 mg IV Q6H PRN PRN Reason: NAUSEA/VOMITING Vital Signs - 8 hr 12/03/17 12/03/17 10:44 11:27 Temperature 99.3 F Pulse Rate 50 Respiratory 18 16 Rate Blood Pressure 122/68 (mmHg) O2 Sat by Pulse 99 Oximetry Oxygen Devices in Use Now: Nasal Cannula Result Diagrams: 12/03/17 05:32 12/03/17 05:32 Microbiology and Other Data: Microbiology 12/02/17 09:56 Gram Stain - Final Sputum Expectorated 12/01/17 09:00 Aerobic Blood Culture - Preliminary Blood Venous No Growth Day 1 Anaerobic Blood Culture - Preliminary No Growth Day 1 12/01/17 08:44 Aerobic Blood Culture - Preliminary Blood Venous No Growth Day 1 Anaerobic Blood Culture - Preliminary No Growth Day 1 12/01/17 15:25 Legionella Urinary Antigen - Final Urine Negative Legionella Antigen Streptococcus pneumoniae Ag Screen - Final Negative S. pneumo Antigen Assess/Plan/Problems-Billing Assessment: - Patient Problems (1) Pneumothorax Current Visit: Yes Status: Acute Code(s): J93.9 - PNEUMOTHORAX, UNSPECIFIED SNOMED Code(s): 15436161 Comment: -S/P removal of CT this AM and repeat CXR a few hours post removal reveal absence of previously found pneumothorax; No changes seen otherwise to suggests new infiltrates (2) Leukocytosis Current Visit: Yes Status: Acute Code(s): D72.829 - ELEVATED WHITE BLOOD CELL COUNT, UNSPECIFIED SNOMED Code(s): 444218120 Comment: -Likely due to hemo-concentration and reactive cause since all differentials are elevated -Will give IVF as ordered -CXR and U/A does not reveal new infiltrates nor UTI -Continue watchful waiting (3) Pneumonia Current Visit: Yes Status: Acute Code(s): J18.9 - PNEUMONIA, UNSPECIFIED ORGANISM SNOMED Code(s): 453813733 Comment: -Continue Rocephin and Azithromycin -(-) for Legionella and S. pneumoniae -Blood Cx (-) x2D (4) HTN (hypertension) Current Visit: Yes Status: Acute Code(s): I10 - ESSENTIAL (PRIMARY) HYPERTENSION SNOMED Code(s): 05420431 Comment: -Well-controlled -Continue Amlodipine (5) DVT prophylaxis Current Visit: Yes Status: Acute Code(s): MDX6746 - SNOMED Code(s): 648727567 Comment: -Continue SCDs Status and Disposition: -As above -Possible D/C in AM
[2017-12-04] MEDS: Acetaminophen TAB* 325 MG PO PRN ×2 (00:35→08:08)
[2017-12-04] MEDS: Benzonatate CAP* 100 MG PO PRN ×2 (00:36→08:08)
[2017-12-04] MEDS: NS 0.9% 1000 ML* 1,000 ML IV SCH (01:43)
[2017-12-04 06:16] LABS: Hematocrit 51 % (42-52); Hemoglobin 17.6 g/dl (14.0-18.0); Mean Corpuscular HGB Conc 35 g/dl (31-36); Mean Corpuscular Hemoglobin 32 pg (27-31); Mean Corpuscular Volume 92 fL (80-94); Mean Platelet Volume 8.7 um3 (7.4-10.4); Platelet Count 184 10^3/ul (150-450); Red Blood Count 5.53 10^6/ul (4.00-5.40); Red Cell Distribution Width 14 % (10.5-15); White Blood Count 11.1 10^3/ul (3.5-10.8)
[2017-12-04 06:41] LABS: EGFR Non-African American 97.5 (>60)
[2017-12-04 08:07] VITALS: BP 161/93
[2017-12-04] MEDS: amLODIPine TAB* 5 MG PO SCH (08:08)
[2017-12-04] MEDS: Lisinopril TAB* 10 MG PO SCH (08:08)
[2017-12-04] MEDS: hydrALAZINE TAB* 25 MG PO SCH (08:08)
[2017-12-04] MEDS: Azithromycin TAB* 250 MG PO SCH (08:08)
[2017-12-04] MEDS: Furosemide TAB* 20 MG PO SCH (08:08)
[2017-12-04] MEDS: oxyCODONE TAB* 5 MG TAB PO PRN (08:08)
[2017-12-04] MEDS: CMCS - Minocycline (NF) 50 MG CAP PO SCH (08:09)
[2017-12-04] MEDS: Nadolol TAB* 40 MG PO SCH (08:11)
--- NOTE | 2017-12-04 08:51 | PN ---
Work Excuse - Work Note Work Note: The above employee has been evaluated on 12/04/17. The physician has instructed the employee concerning further work as described below. Mr. Yao was admitted to our facility on 11/28/17 and is currently being discharged today. He will need a few days to recuperate at home. He should be able to resume his work duties by 12/10/17. Work Status: [] Skip Hurst MD [id number]
--- NOTE | 2017-12-04 09:11 | PN ---
Work Excuse - Work Note Work Note: The above employee has been evaluated on 12/04/17. The physician has instructed the employee concerning further work as described below. Mr. Yao was admitted to our facility on 12/01/17 and is currently being discharged today. He will need a few days to recuperate at home. He should be able to resume his work duties by 12/10/17. Skip Hurst MD [id number]
--- NOTE | 2017-12-04 22:21 | DS ---
ADDENDUM NOW INCLUDED ON THIS REPORT CC: Dr. Melendez; Dr. Jarad Shore; Dr. Janae Smallwood; Dr. Milton Husain * DISCHARGE SUMMARY: DATE OF ADMISSION: DATE OF DISCHARGE: 12/04/17 DISCHARGE DIAGNOSES: Are as follows: 1. Spontaneous pneumothorax, possibly secondary to cough due to possible community- acquired pneumonia. 2. Community-acquired pneumonia. 3. Leukocytosis secondary to pneumonia as well as hemoconcentration. DISCHARGE MEDICATIONS: Are as follows: 1. Tylenol 650 mg p.o. q.6 p.r.n. 2. Amlodipine 10 mg p.o. daily. 3. Lasix 20 mg p.o. daily. 4. Hydralazine 50 mg p.o. t.i.d. 5. Lisinopril 40 mg p.o. daily. 6. Minocycline 100 mg p.o. daily. 7. Nadolol 20 mg p.o. daily. 8. Oxycodone 5 mg p.o. q.4 p.r.n. 10 tabs dispensed with 0 refills. 9. Azithromycin 250 mg p.o. daily for 2 more days. 10. Benzonatate capsule 100 mg p.o. q.6 p.r.n. for cough. 11. Cefpodoxime 200 mg p.o. q.12 for 7 more days. 12. Robitussin DM 10 mL p.o. t.i.d. for 2 days and as needed thereafter. 13. Floranex tablet 1 tab p.o. daily for 10 days. Continue: 1. Loratadine. 2. Mucinex. 3. Vitamin D3 supplementations. HISTORY OF PRESENT ILLNESS/HOSPITAL COURSE: The patient is a 57-year-old gentleman with history of hypertension, who mentions that he has been having some chronic cough, but his cough has gotten worse over the past few days. He then started developing some chest pain and shortness of breath. He mentioned that he felt especially unwell the day prior to admission and has had a severe cough. He mentioned that his granddaughter had a recent sinusitis and thought that perhaps that he was developing this as well. In the ED, he was found to have pneumothorax and hence, a chest tube was placed and he was placed on 2 L nasal cannula on oxygen. Yesterday, on 12/03/17, his chest tube was removed by the surgical department and a subsequent chest x-ray followup and clinical examination post removal transpired, which did not reveal any persistence of pneumothorax. However, he was found to have increasing leukocytosis, thought to be primarily due to hemoconcentration and his pneumonia. He was given IV fluids overnight and his leukocytosis decreased as expected along with the rest of his differentials. The patient continues to feel well and has been clinically improved. The patient was advised to follow up and/or call his PCP within 3 days post discharge and to call the [facility] if his PCP cannot see him any sooner. If he is having problems and that both him and his PCP will need to agree that he can be sent to [facility] instead of other emergent places such as the ER. He was advised to call my office regarding any questions , concerns, or further clarifications regarding his discharge plans and prescription, and he was given a work excuse form, so that he can go back to work on 12/10/17, unless his primary care physician assesses him to be not fit for work at that time and he was advised to take his medications as prescribed. REVIEW OF SYSTEMS: On review of systems, the patient denied any recent headaches, dizziness, fevers, chills, nausea, vomiting, chest pain, shortness of breath, increased cough, sputum production, abdominal pain, diarrhea, constipation, pain and/or increased frequency on urination, myalgias, arthralgias, throat pain, or new skin lesion. The rest of the 14-point review of systems are otherwise unremarkable. PHYSICAL EXAMINATION: The most recent vital signs of records shows 161/93 blood pressure from 145/92; heart rate of 53 beats per minute; 98.7 degrees Fahrenheit. General Appearance: The patient is awake, alert, and oriented x3, not in acute distress. HEENT: Normocephalic, atraumatic. PERRLA. Extraocular muscles intact. Negative for icterus. Moist oral mucosa. Negative throat erythema. Neck is soft, supple with no cervical lymphadenopathy. No JVD. Heart: S1, S2 within normal limits. Regular rate and rhythm. No murmurs , rubs, and gallops. Chest: Clear to auscultation bilaterally. Good air entry. No wheezes, rales, or rhonchi. Abdomen is soft, nondistended, nontender. Normoactive bowel sounds x4. Extremities: No cyanosis, clubbing, or edema. Psychiatric: No active psychosis, depression, suicidal, no homicidal ideations. Skin is warm to touch. TIME SPENT: The total time spent evaluating the patient, reviewing pertinent data and appropriate documentation is greater than 30 minutes. ADDENDUM: I was called by Joyce, his RN and mentioned that his azithromycin, despite the fact that it appears in his discharge medications, was somehow not electronically transmitted. This was then retransmitted electronically and was confirmed with an electronically. Please note that this might appear as if it has been ordered twice; however, the reason why azithromycin would appear twice in his medical records was because it was sent twice to the pharmacy for him to receive it since the first electronic transmission somehow failed. [id number]/[facility] #: [id number] A- [id number]/[facility] #: [id number] [facility]
--- NOTE | 2017-12-05 00:41 | DS ---
ADDENDUM: I was called by Joyce, his RN and mentioned that his azithromycin despite the fact that it appears in his discharge medications was somehow not electronically transmitted. This was then retransmitted electronically and was confirmed with an electronic confirmation when I reordered it. Please note that this might appear as if it has been ordered twice; however, the reason why azithromycin would appear twice in his medical records was because it was sent twice to the pharmacy for him to receive it. [id number]/[facility] #: [id number] [facility]
== END 2017-12-04 10:24 | disposition home or self-care (01) | DRG 194 ==
LOC: ED 08:11 → MEDTELE 12:06
PROVIDERS: ADMIT Hospitalist; ATTEND Student in an Organized Health Care Education/Training Program
PROC: 0W9B30Z Drainage of Left Pleural Cavity with Drainage Device, Percutaneous Approach (ICD-10-PCS; principal; 2017-12-01)
DX: J18.8 Other pneumonia, unspecified organism (principal); J93.12 Secondary spontaneous pneumothorax; I10 Essential (primary) hypertension; Z79.1 Long term (current) use of non-steroidal anti-inflammatories (NSAID); Z79.899 Other long term (current) drug therapy; Z80.0 Family history of malignant neoplasm of digestive organs
CPT/HCPCS: 36415; 71045; 71046; 80048; 80053; 81003; 82103; 83605; 83735; 83880; 84100; 84145; 84484; 85025; 85027; 85610; 86140; 87040; 87070; 87205; 87899; 90732; 93005; 99285; A9270-GY; C1894; J0456; J0696; J2270; J2930

== ENCOUNTER 2018-12-04 12:01 | Day surgery (SDC) | payer OTHER ==
[~2018-12-04 12:01] MED LIST: Buffered Lidocaine 1% SYRIN* 1 ML/SYRINGE INTRADERM ONE; Famotidine IV* 10 MG/ML 2 ML (20 mg) IV ONE; Lactated Ringers 1000 ML Bag* 1,000 ML IV SCH
[2018-12-04] MEDS ORDERED: Famotidine IV* 10 MG/ML 2 ML (20 mg) ONE (12:12)
[2018-12-04] MEDS ORDERED: Buffered Lidocaine 1% SYRIN* 1 ML/SYRINGE INTRADERM ONE (12:12)
[2018-12-04] MEDS ORDERED: Lidocaine 2% w/ EPI 1:200,000* 20 ML VIAL ONE (13:48)
[2018-12-04] MEDS ORDERED: Oxymetazoline 0.05% NASAL SPR* 15 ML BTL ONE (13:48)
[2018-12-04] MEDS ORDERED: fentaNYL* 50 MCG/ML 2 ML VIAL (100 MCG VIAL) ONE ×2 (13:59→14:46)
[2018-12-04] MEDS ORDERED: Dexamethasone IV* 4 MG/ML 1 ML (4 MG) ONE (14:18)
[2018-12-04] MEDS ORDERED: Ondansetron INJ* 2 MG/ML VIAL ONE (14:19)
[2018-12-04] MEDS ORDERED: Gelfoam Sponge SIZE 100* SPONGE ONE (14:24)
[2018-12-04] MEDS ORDERED: DiMENhydriNATE IV* 50 MG/ML VIAL IV PUSH PRN (14:39)
[2018-12-04] MEDS ORDERED: Naloxone* 0.4 MG/ML 1 ML VIAL IV PRN (14:39)
[2018-12-04] MEDS ORDERED: fentaNYL* 50 MCG/ML 2 ML VIAL (100 MCG VIAL) IV PRN (14:39)
[2018-12-04 16:17] VITALS: BP 158/98
--- NOTE | 2018-12-04 17:46 | OP ---
DATE OF OPERATION: 12/04/18 - [facility] DATE OF : 56 SURGEON: Kwaku Davis MD. PRE-OP DIAGNOSIS: Deviated nasal septum, hypertrophied turbinates. POST-OP DIAGNOSIS: Deviated nasal septum, hypertrophied turbinates. OPERATIVE PROCEDURE: Septoplasty and submucosal resection of inferior turbinates. BRIEF HISTORY: This 58-year-old gentleman with longstanding history nasal dyspnea, chronic postnasal drainage and congestion, tried topical nasal steroids for several years without improvement. DESCRIPTION OF PROCEDURE: The patient was taken to the operating room, and the patient was intubated with LMA. Nose was decongested with Afrin-soaked pledgets. Lidocaine 2% was infiltrated in the mucosa of the septum on the right side and into the inferior turbinates. Right hemitransfixion was created. Mucoperichondrial flap was elevated. Quadrangular cartilage was then disarticulated along with the vomer ethmoid complex posteriorly along the maxillary crest inferiorly. A small portion of the crest was removed as well as along the maxillary crest with cartilage . This allowed swinging of the cartilage. This was replaced in the midline, was secured with the multiple mattresses sutures. We then turned out attention to the inferior turbinates. Inferior turbinate mucosal resection was carried out in the submucosal plane and some portion of vomer resected out. A small amount of electrocautery was used for hemostasis. The patient was then awakened and sent to recovery room in stable condition. COUNTS: Instruments and sponge counts were correct. BLOOD LOSS: Minimal. [id number]/[facility] #: [id number] [facility] CENTERRafael
== END 2018-12-04 16:21 | disposition home or self-care (01) ==
LOC: OR 12:01
PROVIDERS: ATTEND Otolaryngology
DX: J34.2 Deviated nasal septum (principal); J34.3 Hypertrophy of nasal turbinates; I10 Essential (primary) hypertension; G47.33 Obstructive sleep apnea (adult) (pediatric); M10.9 Gout, unspecified
CPT/HCPCS: A9270-GY; J1100; J2405; J3010

== ENCOUNTER 2020-03-08 05:23 | Inpatient (IN) ==
[2020-03-08] MEDS ORDERED: Fluticasone NASAL SPRAY 50MCG 16 gm SPRAY BTL BOTH NARES ONE (05:58)
[2020-03-08 06:49] LABS: ABS Lymphocytes 1.6 10^3/ul (1.0-4.8); ABS Monocytes 0.7 10^3/ul (0-0.8); Eosinophil % 0.1 %; Hematocrit 48 % (42-52); Hemoglobin 16.2 g/dL (14.0-18.0); Lymphocyte % 16.8 %; Mean Corpuscular HGB Conc 34 g/dL (31-36); Mean Corpuscular Hemoglobin 31 pg (27-31); Mean Corpuscular Volume 93 fL (80-94); Mean Platelet Volume 9.1 fL (7.4-10.4); Platelet Count 192 10^3/uL (150-450); Red Blood Count 5.16 10^6 /uL (4.18-5.48); Red Cell Distribution Width 14 % (10-15); White Blood Count 9.3 10^3/uL (3.5-10.8)
[2020-03-08 07:04] LABS: CO2 Carbon Dioxide 23 mmol/L (22-32); Chloride 109 mmol/L (101-111); Potassium 4.6 mmol/L (3.5-5.0); Sodium 138 mmol/L (135-145)
[2020-03-08 07:05] LABS: ALT 26 U/L (7-52); AST 49 U/L (13-39); Albumin 3.8 g/dL (3.2-5.2); Albumin/Globulin Ratio 1.6 (1-3); Alkaline Phosphatase 95 U/L (34-104); Anion Gap 6 mmol/L (2-11); Blood Urea Nitrogen 27 mg/dL (6-24); Calcium 10.2 mg/dL (8.6-10.3); EGFR African American 103.8 (>60); EGFR Non-African American 85.8 (>60); Globulin 2.4 g/dL (2-4); Glucose 119 mg/dL (70-100); Magnesium 1.8 mg/dL (1.9-2.7); Total Protein 6.2 g/dL (6.4-8.9)
[2020-03-08 07:09] LABS: Troponin I 0.06 ng/mL (<0.03)
[2020-03-08] MEDS ORDERED: Furosemide 40 mg/4 ml IV VIAL IV ONE (07:15)
[2020-03-08 07:22] LABS: INR 1.15 (0.82-1.09)
[2020-03-08] MEDS ORDERED: Albuterol 2.5mg/3 ml (0.083%) NEB.SOLN INH PRN (08:35)
[2020-03-08] MEDS ORDERED: MINOCYCLINE 100 MG PO SCH (09:00)
[2020-03-08 09:31] LABS: Urine Appearance Clear; Urine Bilirubin Negative (Negative); Urine Blood Negative (Negative); Urine Color Yellow; Urine Glucose Negative (Negative); Urine Ketones Negative (Negative); Urine Nitrite Negative (Negative); Urine Protein Negative (Negative); Urine Specific Gravity 1.011 (1.010-1.030); Urine Urobilinogen Negative (Negative)
[2020-03-08 09:42] LABS: Troponin I 0.05 ng/mL (<0.03)
[2020-03-08] MEDS: cefTRIAXone 1 gm/50 mL NS BAG 1 GM/50 ML BAG IVPB SCH (10:37)
[2020-03-08] MEDS: Enoxaparin 40 MG/0.4 ML SYR SUBCUT SCH (11:19)
[2020-03-08 13:19] LABS: Troponin I 0.05 ng/mL (<0.03)
[2020-03-08] MEDS ORDERED: Perflutren Lipid Microsphere 3 ML VIAL ONE (15:08)
[2020-03-08] MEDS: SPIRIVA Respimat (tiotropium) 2.5 mcg/inh Inhaler INH SCH (20:29)
[2020-03-08] MEDS: Albuterol HFA INHALER 8 gm MDI INH PRN (20:39)
[2020-03-09] MEDS: Albuterol HFA INHALER 8 gm MDI INH PRN (03:43)
[2020-03-09] MEDS ORDERED: Magnesium Sulfate IV 3 GM in NS 0.9% 100 ml BAG 100 ML IVPB ONE (03:56)
[2020-03-09] MEDS: Enoxaparin 40 MG/0.4 ML SYR SUBCUT SCH (08:26)
[2020-03-09] MEDS: SPIRIVA Respimat (tiotropium) 2.5 mcg/inh Inhaler INH SCH (08:38)
[2020-03-09 09:08] LABS: ABS Basophils 0.1 10^3/ul (0-0.2); ABS Eosinophils 0.5 10^3/ul (0-0.6); ABS Lymphocytes 3.5 10^3/ul (1.0-4.8); ABS Monocytes 1.5 10^3/ul (0-0.8); ABS Neutrophils 8.9 10^3/ul (1.5-7.7); Eosinophil % 3.2 %; Hematocrit 54 % (42-52); Hemoglobin 18.1 g/dL (14.0-18.0); Lymphocyte % 24.5 %; Mean Corpuscular HGB Conc 34 g/dL (31-36); Mean Corpuscular Hemoglobin 32 pg (27-31); Mean Corpuscular Volume 94 fL (80-94); Mean Platelet Volume 10.3 fL (7.4-10.4); Nucleated Red Blood Cells % 0.2; Platelet Count 250 10^3/uL (150-450); Red Cell Distribution Width 15 % (10-15); White Blood Count 14.5 10^3/uL (3.5-10.8)
[2020-03-09 09:18] LABS: CO2 Carbon Dioxide 25 mmol/L (22-32); Calcium 10.3 mg/dL (8.6-10.3); Chloride 106 mmol/L (101-111); Sodium 138 mmol/L (135-145)
[2020-03-09 09:20] LABS: Anion Gap 7 mmol/L (2-11)
[2020-03-09 09:24] LABS: BUN/Creatinine Ratio 25.6 (8-20); Blood Urea Nitrogen 23 mg/dL (6-24); Cholesterol 226 mg/dL; EGFR African American 103.8 (>60); EGFR Non-African American 85.8 (>60); Glucose 74 mg/dL (70-100); LDL Cholesterol 144 mg/dL; Triglycerides 191 mg/dL
[2020-03-09] MEDS ORDERED: NS 0.9% 1000 ml BAG 1,000 ML IV SCH (10:30)
[2020-03-09] MEDS: cefTRIAXone 1 gm/50 mL NS BAG 1 GM/50 ML BAG IVPB SCH (10:34)
[2020-03-09] MEDS ORDERED: Midazolam 5 mg/5 ml VIAL 1 mg/ml 5 ml VIAL (5 mg) ONE (14:25)
[2020-03-09] MEDS ORDERED: fentaNYL 100 mcg/2 ml 50 MCG/ML VIAL ONE (14:25)
[2020-03-09] MEDS ORDERED: Iohexol 350 (CONTRAST) 200 ML MDV IV ONE (14:26)
[2020-03-09] MEDS ORDERED: Heparin 1,000 UNIT/ML 10 ml (10,000 UNITS) CATHLAB/DIALYSIS ONE (14:26)
[2020-03-09] MEDS ORDERED: Heparin 2 UNITS/ML 1000 mls 2,000 ML IV ONE (14:26)
[2020-03-09] MEDS ORDERED: VERAPAMIL 2.5 MG/ML 2 ML VIAL ** 5 mg/2 ml ONE (14:26)
[2020-03-09] MEDS ORDERED: nitroGLYCERIN DRIP 25,000 MCG/250 ML BTL ONE (14:26)
[2020-03-09] MEDS ORDERED: Lidocaine 1% VIAL 10 MG/ML VIAL ONE (14:26)
[2020-03-09 15:23] LABS: POC SO2 86 %
[2020-03-09 15:23] LABS: POC SO2 87 %
[2020-03-09 15:25] LABS: POC SO2 97 %
[2020-03-09 15:53] LABS: POC SO2 84 %
[2020-03-09 15:53] LABS: POC SO2 87 %
[2020-03-09] MEDS ORDERED: Furosemide 20 mg/2 ml IV VIAL IV SLOW PU ONE (17:09)
[2020-03-10] MEDS: SPIRIVA Respimat (tiotropium) 2.5 mcg/inh Inhaler INH SCH (07:21)
[2020-03-10 07:34] LABS: BUN/Creatinine Ratio 30.2 (8-20); Calcium 10.3 mg/dL (8.6-10.3); EGFR African American 96.4 (>60); EGFR Non-African American 79.6 (>60); Magnesium 2.3 mg/dL (1.9-2.7); Potassium 4.5 mmol/L (3.5-5.0)
[2020-03-10] MEDS: Enoxaparin 40 MG/0.4 ML SYR SUBCUT SCH (11:01)
[2020-03-10 14:14] LABS: TSH Ultra Thyroid Stim Horm 2.56 mcIU/mL (0.34-5.60)
[2020-03-10 14:16] LABS: Free T4 0.78 ng/dL (0.61-1.12)
[2020-03-10 14:52] LABS: Free T3 2.9 pg/mL (2.5-3.9)
[2020-03-11 06:50] LABS: BUN/Creatinine Ratio 29.6 (8-20); Calcium 9.9 mg/dL (8.6-10.3); EGFR African American 117.2 (>60); EGFR Non-African American 96.9 (>60); Potassium 4.2 mmol/L (3.5-5.0)
[2020-03-11] MEDS: Enoxaparin 40 MG/0.4 ML SYR SUBCUT SCH (08:15)
[2020-03-11] MEDS: SPIRIVA Respimat (tiotropium) 2.5 mcg/inh Inhaler INH SCH (11:12)
[2020-03-11 13:39] VITALS: BP 155/90
[2020-03-12 18:14] LABS: Alpha 1 Antitrypsin A1A 32 mg/dL (100 - 190)
== END 2020-03-11 17:00 | disposition home or self-care (01) | DRG 286 ==
LOC: ED 05:23 → MERGE 08:05 → MEDTELE 08:05 → MED 03-10 21:18
PROVIDERS: ADMIT Internal Medicine; ATTEND Internal Medicine

== ENCOUNTER 2020-11-05 12:43 | Inpatient (IN) ==
[2020-11-05] MEDS ORDERED: Dextrose 50% Syringe 50 ml 25 GM/50 ML SYRINGE IV PUSH ONE ×2 (13:02)
[2020-11-05] MEDS ORDERED: NS 0.9% 1000 ml BAG 1,000 ML IV ONE (13:03)
[2020-11-05] MEDS ORDERED: Furosemide 40 mg/4 ml IV VIAL IV ONE (13:34)
[2020-11-05] MEDS ORDERED: Sodium Polystyrene ORAL.SUSP 15 GM/60 ML BTL PO ONE (13:44)
[2020-11-05] MEDS ORDERED: Albumin Human 25% 100 GM/400 ML BTL IV ONE (14:00)
[2020-11-05] MEDS ORDERED: Furosemide 100 mg/10 ml IV VIAL ONE (15:24)
[2020-11-05] MEDS ORDERED: Furosemide 100 mg/10 ml IV VIAL IV ONE (15:38)
[2020-11-05] MEDS ORDERED: Perflutren Lipid Microsphere 3 ML VIAL ONE (15:48)
[2020-11-05 22:58] LABS: ABS Lymphocytes 0.9 10^3/ul (1.0-4.8); ABS Monocytes 0.4 10^3/ul (0-0.8); ABS Neutrophils 6.2 10^3/ul (1.5-7.7); Eosinophil % 0.4 %; Hematocrit 43 % (42-52); Hemoglobin 14.4 g/dL (14.0-18.0); Lymphocyte % 11.4 %; Mean Corpuscular HGB Conc 34 g/dL (31-36); Mean Corpuscular Hemoglobin 33 pg (27-31); Mean Corpuscular Volume 98 fL (80-94); Mean Platelet Volume 8.9 fL (7.4-10.4); Platelet Count 110 10^3/uL (150-450); Red Blood Count 4.37 10^6 /uL (4.18-5.48); Red Cell Distribution Width 17 % (10-15); White Blood Count 7.5 10^3/uL (3.5-10.8)
[2020-11-05 23:15] LABS: Albumin/Globulin Ratio 2.1 (1-3); Calcium 11.6 mg/dL (8.6-10.3); EGFR African American 45.9 (>60); EGFR Non-African American 37.9 (>60); Globulin 1.9 g/dL (2-4); Potassium 4.5 mmol/L (3.5-5.0); Total Bilirubin 3.5 mg/dL (0.2-1.0); Total Protein 5.9 g/dL (6.4-8.9)
[2020-11-06] MEDS: SPIRIVA Respimat (tiotropium) 2.5 mcg/inh Inhaler INH SCH (07:42)
[2020-11-06] MEDS: Heparin 5000 UNITS/ML 1 mL VIAL SUBCUT SCH ×2 (08:11→22:04)
[2020-11-06] MEDS: BECLOMETHASONE BOTH NARES SCH (08:14)
[2020-11-06] MEDS: Polyethylene Glycol 3350 17 GM PACKET PO SCH (08:14)
[2020-11-06] MEDS: Albumin Human 25% 100 GM/400 ML BTL IV SCH (13:08)
[2020-11-06] MEDS: Furosemide 100 mg/10 ml IV 100 MG in NS 0.9% 100 ml BAG 90 ML IV SCH ×2 (15:45→22:22)
[2020-11-06] MEDS ORDERED: Iodixanol (CONTRAST) 320 MG/ML 100 ML SDV IV ONE (16:17)
[2020-11-06] MEDS ORDERED: Furosemide 100 mg/10 ml IV VIAL ONE (21:49)
[2020-11-07] MEDS: SPIRIVA Respimat (tiotropium) 2.5 mcg/inh Inhaler INH SCH (07:23)
[2020-11-07] MEDS ORDERED: Furosemide 100 mg/10 ml IV VIAL ONE (08:48)
[2020-11-07] MEDS: Furosemide 100 mg/10 ml IV 100 MG in NS 0.9% 100 ml BAG 90 ML IV SCH ×2 (08:55→17:36)
[2020-11-07] MEDS: BECLOMETHASONE BOTH NARES SCH (09:06)
[2020-11-07] MEDS: Heparin 5000 UNITS/ML 1 mL VIAL SUBCUT SCH ×2 (09:06→20:34)
[2020-11-07] MEDS: Polyethylene Glycol 3350 17 GM PACKET PO SCH (09:07)
[2020-11-07 09:22] LABS: ABS Basophils 0.1 10^3/ul (0-0.2); ABS Eosinophils 0.1 10^3/ul (0-0.6); ABS Lymphocytes 1.2 10^3/ul (1.0-4.8); ABS Monocytes 0.6 10^3/ul (0-0.8); ABS Neutrophils 7.3 10^3/ul (1.5-7.7); Eosinophil % 1.1 %; Hematocrit 46 % (42-52); Hemoglobin 15.5 g/dL (14.0-18.0); Lymphocyte % 12.7 %; Mean Corpuscular HGB Conc 34 g/dL (31-36); Mean Corpuscular Hemoglobin 33 pg (27-31); Mean Corpuscular Volume 97 fL (80-94); Mean Platelet Volume 9.3 fL (7.4-10.4); Platelet Count 113 10^3/uL (150-450); Red Blood Count 4.73 10^6 /uL (4.18-5.48); Red Cell Distribution Width 17 % (10-15); White Blood Count 9.2 10^3/uL (3.5-10.8)
[2020-11-07 09:40] LABS: C Reactive Protein 62.6 mg/L (<8.01); Calcium 12.1 mg/dL (8.6-10.3); EGFR African American 36.7 (>60); EGFR Non-African American 30.3 (>60); Potassium 3.8 mmol/L (3.5-5.0)
[2020-11-07] MEDS: Albumin Human 25% 100 GM/400 ML BTL IV SCH (10:02)
[2020-11-07 12:09] LABS: UR Microalbumin (mg/L) 28.6 mg/L; Urine Creatinine 86.37 mg/dL; Urine Microalbumin/Creatinine 33.1 (<31)
[2020-11-07 12:57] LABS: Urine Appearance Clear; Urine Bilirubin Negative (Negative); Urine Blood 1+ (Negative); Urine Color Yellow; Urine Glucose Negative (Negative); Urine Ketones Negative (Negative); Urine Nitrite Negative (Negative); Urine Protein Negative (Negative); Urine Urobilinogen Negative (Negative)
[2020-11-07 12:59] LABS: Vitamin D Total 25(OH) 32.7 ng/mL (20-50)
[2020-11-07 13:09] LABS: Urine Bacteria Absent (Absent); Urine Red Blood Cell Trace(0-2/hpf) (Absent); Urine White Blood Cell Trace(0-5/hpf) (Absent)
[2020-11-08] MEDS: Furosemide 100 mg/10 ml IV 100 MG in NS 0.9% 100 ml BAG 90 ML IV SCH ×2 (03:48→14:07)
[2020-11-08 06:31] LABS: Calcium 11.7 mg/dL (8.6-10.3); EGFR Non-African American 28.1 (>60); Potassium 3.7 mmol/L (3.5-5.0)
[2020-11-08] MEDS: SPIRIVA Respimat (tiotropium) 2.5 mcg/inh Inhaler INH SCH (07:50)
[2020-11-08] MEDS: Heparin 5000 UNITS/ML 1 mL VIAL SUBCUT SCH ×2 (09:59→20:53)
[2020-11-08] MEDS: Albumin Human 25% 100 GM/400 ML BTL IV SCH (10:06)
[2020-11-08] MEDS: Polyethylene Glycol 3350 17 GM PACKET PO SCH (10:08)
[2020-11-08] MEDS: BECLOMETHASONE BOTH NARES SCH (10:08)
[2020-11-08] MEDS ORDERED: Ondansetron 4 mg VIAL 2 MG/ML 2 ml VIAL IV PRN (17:33)
[2020-11-08] MEDS ORDERED: Denosumab 60 MG/ML SYRINGE SUBCUT ONE (18:00)
[2020-11-09] MEDS: Furosemide 100 mg/10 ml IV 100 MG in NS 0.9% 100 ml BAG 90 ML IV SCH ×3 (01:17→20:44)
[2020-11-09] MEDS: SPIRIVA Respimat (tiotropium) 2.5 mcg/inh Inhaler INH SCH (08:19)
[2020-11-09] MEDS: Polyethylene Glycol 3350 17 GM PACKET PO SCH (09:22)
[2020-11-09] MEDS: Heparin 5000 UNITS/ML 1 mL VIAL SUBCUT SCH ×2 (09:46→20:49)
[2020-11-09] MEDS: Albumin Human 25% 100 GM/400 ML BTL IV SCH (09:47)
[2020-11-09] MEDS: BECLOMETHASONE BOTH NARES SCH (09:50)
[2020-11-09 10:45] LABS: Blood Urea Nitrogen 88 mg/dL (6-24); CO2 Carbon Dioxide 20 mmol/L (22-32); Calcium 11.4 mg/dL (8.6-10.3); Chloride 101 mmol/L (101-111); EGFR African American 27.7 (>60); EGFR Non-African American 22.9 (>60); Glucose 118 mg/dL (70-100); Phosphorus 3.6 mg/dL (2.5-5.0); Sodium 134 mmol/L (135-145)
[2020-11-09 11:14] LABS: Anion Gap 13 mmol/L (2-11)
[2020-11-09 13:22] LABS: Kappa Free Light Chain 6.56 mg/dL; Lambda Free Light Chain, S 3.58 mg/dL
[2020-11-09 16:28] LABS: Albumin 3.9 g/dL (3.4-4.7); Albumin/Globulin Ratio 1.89; Gamma Globulin 0.8 g/dL (0.6-1.6)
[2020-11-10] MEDS: Furosemide 100 mg/10 ml IV 100 MG in NS 0.9% 100 ml BAG 90 ML IV SCH (04:46)
[2020-11-10 07:23] LABS: CO2 Carbon Dioxide 16 mmol/L (22-32); Chloride 103 mmol/L (101-111); Sodium 135 mmol/L (135-145)
[2020-11-10 07:29] LABS: ALT 25 U/L (7-52); Alkaline Phosphatase 119 U/L (35-149); Blood Urea Nitrogen 88 mg/dL (6-24); EGFR African American 32.1 (>60); EGFR Non-African American 26.5 (>60); Glucose 91 mg/dL (70-100)
[2020-11-10 07:40] LABS: Hematocrit 46 % (42-52); Hemoglobin 15.2 g/dL (14.0-18.0); Mean Corpuscular HGB Conc 33 g/dL (31-36); Mean Corpuscular Hemoglobin 34 pg (27-31); Mean Corpuscular Volume 102 fL (80-94); Red Blood Count 4.53 10^6 /uL (4.18-5.48); Red Cell Distribution Width 19 % (10-15); White Blood Count 8.3 10^3/uL (3.5-10.8)
[2020-11-10 08:00] LABS: Anion Gap 16 mmol/L (2-11)
[2020-11-10 08:10] LABS: ABS Eosinophils 0.1 10^3/ul (0-0.6); ABS Lymphocytes 1.2 10^3/ul (1.0-4.8); ABS Monocytes 0.6 10^3/ul (0-0.8); ABS Neutrophils 6.4 10^3/ul (1.5-7.7); Eosinophil % 1.6 %; Lymphocyte % 14.3 %; Mean Platelet Volume 8.2 fL (7.4-10.4); Nucleated Red Blood Cells % 0.1; Platelet Count 97 10^3/uL (150-450)
[2020-11-10] MEDS ORDERED: Furosemide 100 mg/10 ml IV 100 MG in NS 0.9% 100 ml BAG 90 ML IV SCH (08:15)
[2020-11-10] MEDS: SPIRIVA Respimat (tiotropium) 2.5 mcg/inh Inhaler INH SCH (08:45)
[2020-11-10 08:51] LABS: Magnesium 2.1 mg/dL (1.9-2.7); Potassium Redraw 3.6 mmol/L (3.5-5.0)
[2020-11-10] MEDS ORDERED: Fluticasone NASAL SPRAY 50MCG 16 gm SPRAY BTL BOTH NARES SCH (09:00)
[2020-11-10] MEDS: Albumin Human 25% 100 GM/400 ML BTL IV SCH (09:49)
[2020-11-10] MEDS: Heparin 5000 UNITS/ML 1 mL VIAL SUBCUT SCH (09:49)
[2020-11-10] MEDS: Fluticasone NASAL SPRAY 50MCG 16 gm SPRAY BTL BOTH NARES SCH (09:53)
[2020-11-10] MEDS: Polyethylene Glycol 3350 17 GM PACKET PO SCH (09:53)
[2020-11-10 17:15] LABS: XCalcitriol <8.0 pg/mL (18-64)
[2020-11-10 20:08] VITALS: BP 98/61
[2020-11-11] MEDS: Morphine ORAL CONCENTRATE 5 MG/0.25 ML ORAL.SYRIN SL PRN ×7 (04:03→23:27)
[2020-11-11] MEDS: SPIRIVA Respimat (tiotropium) 2.5 mcg/inh Inhaler INH SCH (07:46)
[2020-11-11] MEDS: Polyethylene Glycol 3350 17 GM PACKET PO SCH (09:41)
[2020-11-11] MEDS: Fluticasone NASAL SPRAY 50MCG 16 gm SPRAY BTL BOTH NARES SCH (09:48)
[2020-11-11 17:41] LABS: Urine Kappa Total Light Chain 1.98 mg/dL (<0.9000); Urine Kappa/Lambda Light Chain >2.83
[2020-11-12] MEDS: Morphine ORAL CONCENTRATE 5 MG/0.25 ML ORAL.SYRIN SL PRN ×4 (04:29→15:25)
[2020-11-12] MEDS: SPIRIVA Respimat (tiotropium) 2.5 mcg/inh Inhaler INH SCH (07:10)
[2020-11-12] MEDS: Polyethylene Glycol 3350 17 GM PACKET PO SCH (08:42)
[2020-11-12] MEDS: Fluticasone NASAL SPRAY 50MCG 16 gm SPRAY BTL BOTH NARES SCH (08:48)
== END 2020-11-12 16:41 | disposition hospice, home (50) | DRG 441 ==
LOC: MEDTELE 12:43 → ED 12:43 → MEDTELE 11-06 01:27
PROVIDERS: ADMIT Student in an Organized Health Care Education/Training Program; ATTEND Hospitalist